=== PATIENT | female | born 1955 | race Caucasian/White ===

== ENCOUNTER 2018-09-24 12:49 | Day surgery (SDC) | payer MEDICARE ==
[2018-09-24 13:14] VITALS: TEMP 98
[2018-09-24 13:20] LABS: Mean Platelet Volume 7.4; Platelet Count 183 k/uL (150-450)
[2018-09-24] MEDS ORDERED: ALBUMIN HUMAN 25% 50 ML in EMPTY BAG 1 BAG IVPB SCH (13:30)
[2018-09-24 13:31] LABS: Glucose 356 mg/dL (74-99)
[2018-09-24 13:33] LABS: Prothrombin Time 10.9 sec (9.0-12.0)
[2018-09-24 14:13] VITALS: RESP 16
[2018-09-24 14:45] VITALS: BP 132/71; PULSE 77
--- NOTE | 2018-09-24 15:36 | US ---
EXAMINATION TYPE: US paracentesis abd w/image DATE OF EXAM: 09/24/2018 COMPARISON: NONE HISTORY: Ascites. PROCEDURE: Maximal barrier technique was utilized. The skin overlying a suitable pocket of fluid was localized with ultrasound and the overlying skin was prepped and draped. Ultrasound was utilized with sterile technique. Lidocaine was used for local anesthesia and a skin stacy made with a scalpel. Catheter was advanced under direct ultrasound guidance into a suitable pocket of fluid and approximately 3.5 liter s of serous fluid were removed. Catheter was withdrawn and hemostasis achieved. There is no immedia te complication; the patient is discharged in stable condition. IMPRESSION: STATUS POST ULTRASOUND GUIDED PARACENTESIS FOR PALLIATION OF ASCITES. THIS PROCEDURE WA S PERFORMED BY THE UNDERSIGNED.
== END 2018-09-24 15:00 | disposition home or self-care (01) ==
LOC: RADPROMAIN 12:49
DX: R18.8 Other ascites (principal)
CPT/HCPCS: 49083; 82565; 82947; 85049; 85610